=== PATIENT | female | born 1985 | race Caucasian/White ===

== ENCOUNTER 2018-05-25 06:05 | Inpatient (IN) | payer OTHER ==
[~2018-05-25 06:05] MED LIST: CITRIC ACID/SODIUM CITRATE 30 ML UNIT-DOSE CUP PO ONE; ELECTROLYTE-148 SOLN 500 ML IV ONE
[2018-05-25] MEDS ORDERED: ELECTROLYTE-148 SOLN 1,000 ML IV SCH (06:35)
[2018-05-25 06:42] VITALS: BMI 29.9
[2018-05-25] MEDS ORDERED: OXYTOCIN 20 UNITS in 0.9% NS 20 UNIT/1,000 ML INFUS.BAG IV ONE ×2 (07:45→10:46)
[2018-05-25] MEDS ORDERED: PHENYLEPHRINE HCL 10 MG/1 ML SINGLE DOSE VIAL ONE ×2 (07:52→07:54)
[2018-05-25] MEDS ORDERED: SODIUM CHLORIDE 0.9% P/F 10 ML VIAL IJ ONE (07:54)
[2018-05-25] MEDS ORDERED: ceFAZolin SODIUM 1 GM VIAL ONE (07:55)
--- NOTE | 2018-05-25 07:59 | HP ---
Past Medical History - Primary Care Physician PCP:: Flaca Al - Admission Chief Complaint: 33 yrs , 39.3 weeks gestation, previous c/section x3 , requests for repeat c/section & Voluntary sterilization History of Present Illness: PNC at [address] [place] [address] wt gain 20 lbs panel 10/27/17 : O Pos, Rpr nr, Hbsag neg, Rubella pos, Hiv neg, Cf screen neg,, pap nilm , gc/ct neg 02/24/18 1 hr gtt 164, rpr nr, Quantiferon neg 03/07/18 3 hr Gtt 70/166/180/126 05/03/18 36 weeks cultures , gc/ct neg, GBS neg , Hiv neg, h/h 12.7/37.1plt 208 serial sograms done for growth by MFM NT screen neg, AFP neg History Source: Patient, Medical Record Limitations to Obtaining History: No Limitations - Past Medical History MEDICAL ASSOCIATE: No: Migraine, Seizure Cardiovascular: No: HTN, Murmur Pulmonary: No: Asthma Gastrointestinal: Yes: Constipation Hepatobiliary: No: Hepatitis B Renal/: No: UTI ...: 4 ...Para: 3 ...Term: 3 ...: 0 ...Spon : 0 ...Induced : 0 ...Multiple Gestation: 0 ...LMP: 08/22/17 ... Weeks Gestation by Dates: 39.3 ...EDC by Dates: 05/29/18 ...EDC by Sono: 05/30/18 (11/15/17 14 weeks bysono) Additional OB History: G1 11/10/2003 40 weeks primary c/section due to Breech Female at [facility]. G2 10/13/2007 40 weeks repeat c/sect female [facility]. G3 09/10/2010 40 weeks repeat c/sec male [facility] Infectious Disease: No: AIDS, HIV, STD's, Tuberculosis Psych: No: Addictions, Anxiety, Bipolar, Depression, Panic, Psychosis, Schizophrenia, Other Endocrine: No: Diabetes Mellitus, Hypothyroidism - Past Surgical History Past Surgical History: Yes: (10/2003, 09/2007, 08/2010) Hx Myomectomy: No Hx Transabdominal Cerclage: No - Smoking History Smoking history: Never smoked Have you smoked in the past 12 months: No - Alcohol/Substance Use Hx Alcohol Use: No History of Substance Use: reports: None Home Medications - Allergies Allergies/Adverse Reactions: Allergies Allergy/AdvReac Type Severity Reaction Status Date / Time No Known Allergies Allergy Verified 05/25/18 06:31 - Home Medications Home Medications: Ambulatory Orders Vitamins (Sjr) - 1 tab PO DAILY 05/25/18 Physical Exam - Maternity Vital Signs: Vital Signs Temperature 97.9 F 05/25/18 06:32 Pulse Rate 83 05/25/18 06:32 Respiratory Rate 18 05/25/18 06:32 Blood Pressure 135/92 05/25/18 06:32 O2 Sat by Pulse Oximetry (%) Selected Entries 05/25/18 06:32 Weight 164 lb Constitutional: Yes: Well Nourished, No Distress, Calm Eyes: Yes: WNL HENT: Yes: WNL, Normocephalic Neck: Yes: WNL Cardiovascular: Yes: WNL, Regular Rate and Rhythm Lungs: Clear to auscultation Breast(s): Yes: WNL. No: Mass - Abdominal Exam/OB Fundal Height: 38 Number of Fetuses: Single Presentation: Vertex Contractions: Yes Regularity: Irregular Intensity: Unaware Monitor Mode: External Heart Rate (range): 150 Heart Rate Location: [facility] [place] Category: I Accelerations: Uniform Decelerations: None - Vaginal Exam/OB Vaginal Bleediing: No Speculum Exam: No Dilatation (cm): close Effacement (%): unefface Amniotic Membrane Status: Intact Presentation: Vertex/Position Station: -4 - Physical Exam Musculoskeletal: Yes: WNL Extremities: Yes: WNL. No: Calf Tenderness Edema: LLE: 1+, RLE: 1+ Integumentary: Yes: Incision (pfannensteil scar) Deep Tendon Reflex Grade: Normal +2 ...Motor Strength: WNL Psychiatric: Yes: WNL, Alert - Labs Lab Results: Laboratory Tests 05/23/18 05/23/18 05/23/18 09:11 09:11 09:11 WBC 7.2 Hgb 14.1 Hct 40.0 Plt Count 214 PT with INR 10.40 INR 0.88 Sodium Potassium Carbon Dioxide BUN Creatinine Random Glucose Calcium Total Bilirubin AST ALT Urine Protein Negative Urine Nitrite Negative Ur Leukocyte Esterase Negative Urine WBC (Auto) 1 Urine RBC (Auto) 15 Ur Epithelial Cells Moderate Urine Bacteria Rare Hyaline Casts 3 RPR Titer 05/23/18 05/23/18 09:11 09:11 WBC Hgb Hct Plt Count PT with INR INR Sodium 139 Potassium 4.2 Carbon Dioxide 22 BUN 9 Creatinine 0.5 L Random Glucose 51 L Calcium 8.9 Total Bilirubin 0.2 AST 23 ALT 16 Urine Protein Urine Nitrite Ur Leukocyte Esterase Urine WBC (Auto) Urine RBC (Auto) Ur Epithelial Cells Urine Bacteria Hyaline Casts RPR Titer Nonreactive Problem List - Problems (1) with 39 completed weeks gestation Code(s): Z3A.39 - 39 WEEKS GESTATION OF (2) Previous section Code(s): Z98.891 - HISTORY OF UTERINE SCAR FROM PREVIOUS SURGERY (3) Multiparity Code(s): Z64.1 - PROBLEMS RELATED TO MULTIPARITY Assessment/Plan 33 yrs , 39.3 weeks previous c/sx3 , gbs neg, requests for repeat c/ section & voluntary sterilization Plan Repeat LFTC/section & BTL
[2018-05-25] MEDS ORDERED: ePHEDrine SULFATE 50 MG/1 ML AMPULE ONE (08:16)
[2018-05-25] MEDS ORDERED: KETOROLAC TROMETHAMINE 30 MG/1 ML VIAL ONE (08:56)
[2018-05-25 09:30] LABS: VENOUS PC02 53.2 mmHg (38-52); VENOUS PH 7.3 (7.32-7.42)
[2018-05-25 09:31] LABS: VENOUS PO2 24.9 mmHg (28-48)
[2018-05-25] MEDS ORDERED: ACETAMINOPHEN 325 MG TABLET (FP) PO PRN (09:46)
[2018-05-25] MEDS ORDERED: IBUPROFEN 600 MG TABLET (FP) PO PRN (09:46)
[2018-05-25] MEDS ORDERED: ONDANSETRON 4 MG/2 ML VIAL IVPUSH PRN (09:46)
[2018-05-25] MEDS ORDERED: SENNOSIDES/DOCUSATE COMBO (SENNA PLUS) TABLET (UD) PO PRN (10:03)
[2018-05-25] MEDS ORDERED: oxyCODONE HCL 5 MG TABLET PO PRN (10:03)
[2018-05-25] MEDS ORDERED: METHYLERGONOVINE MALEATE 0.2 MG/1 ML AMP IM PRN (10:03)
--- NOTE | 2018-05-25 10:14 | OP ---
Operative Note - Note: Operative Date: 05/25/18 Pre-Operative Diagnosis: 39 weeks , previous c/section x3, multiparity, voluntary, sterilization Operation: Repeat LFTC/Section + BTL Findings: TOB 8.27 AM , Baby Boy, 9/9, wt 7'14', ht 19",Vx , LOT position Both tubes normal, ligated, cut by Modified Livia technique Lt side 1.5 cm para tubal cyst excised . Both ovaries normal Dr Betina Sandoval Hadoop Administrator present in the OR Surgeon: Flaca Al Cylinder Press Operator Helper: Rogelio Hernández Anesthesiologist/MOTOR OVERHAULER: Tram Ervin Anesthesia: Spinal Specimens Removed: cord sgment for coed blood gas. cord blood. placenta. left tubal portion. right tubal portion. left paratubal cyst Estimated Blood Loss (mls): 500 Drains, Volume Out (mls): 100 (chris color , reardon output) Fluid Volume Replaced (mls): 1,500 (Iv Ancef 2 gm ivpb given ) Operative Report Dictated: Yes
[2018-05-25] MEDS ORDERED: OXYTOCIN 20 UNITS in 0.9% NS 20 UNIT/1,000 ML INFUS.BAG IV SCH (10:15)
--- NOTE | 2018-05-25 10:27 | PN ---
Delivery - Delivery Section: Repeat (Bilateral Tubal Ligation), Low Flap Transverse Type of Anesthesia: Spinal Episiotomy/Laceration: None EBL (cc): 500 (reardon output 100 ml) Delivery, Single - Stages of Labor Date of Delivery: 05/25/18 Time of Delivery: Date Placenta Delivered: 05/25/18 Time Placenta Delivered: Placenta: Yes: Manual Removal, Uterine Exploration - Condition of Routeman/Grinder Tender Present: Yes Name: Betina Sandoval Weight: 7 lb 14 oz Position: Left, OT Total Hours ROM (Hrs/Mins): 2 MINS - 1 Minute Total Score: 9 5 Minutes Total Score: 9 - Feeding Plan Initial Plan: Elected not to breastfeed exclusively throughout hospitalization Remarks - Remarks Remarks: 33 yrs , 39.3 weeks, gbs neg pnc at [address] [place] [address] clinic Indication : 39 weeks gestation, previous c/sx3, Multiparity, voluntary sterilization Intraop course uneventful 2 gm iv ancef intraop was given
--- NOTE | 2018-05-25 12:04 | OP ---
DATE OF OPERATION: 05/25/2018 PREOPERATIVE DIAGNOSES: A 39-week , previous section x3, multiparity, requests voluntary sterilization. OPERATION DONE: Repeat low-flap transverse section and bilateral tubal ligation. SURGEON: Flaca Al MD BUSINESS UNIT CONTROLLER SURGEON: RORY Jovel ANESTHESIOLOGIST: Tram Ervin MD QUANTITATIVE RESEARCHER: Isaak Sandoval DO ANESTHESIA: Spinal. FINDINGS: This is a 33-year-old, 4, para 3-0-0-3, had previous three C sections done in the past, and now requests for repeat C section and tubal ligation. She is not in labor. PROCEDURE: Patient's abdomen was shaved, prepped. Soria catheter was placed. She was taken to the operating room table. Spinal anesthesia was given. She was placed in supine position. A Pfannenstiel incision was made through previous scar and skin and subcutaneous tissue. The anterior rectus sheath was incised transversely. Bleeding points were clamped and cauterized and then the rectus muscles were from the rectus sheath and the parietal peritoneum was opened vertically. Lower flap of the peritoneum was identified. It was adherent to the lower segment. The bladder was attached to it, so just above that the transverse incision was made in the uterine segment transversely in the lower segment and the amniotic fluid was clear. It was ruptured. Baby was delivered from LOT position at 8:27 a.m., a baby boy. was 9, 9, and the weight was 7 pounds 14 ounces. Cord was clamped and cut and the cord segment was sent for the cord blood gases and the cord blood was collected. Placenta was removed completely with the membranes. Then, the uterus was exteriorized from the peritoneal cavity. The uterine incision was identified. Uterine cavity was cleaned and then uterine incision was closed in 2 layers. First layer was a continuous locking with a Biosyn 0 suture. Continuous locking sutures were taken. Second was continuous intermittent locking with a Biosyn 0 suture and the bladder peritoneum was included and the vertical mattress sutures were taken. Hemostasis was verified. Both ovaries were normal. Both tubes were identified by the fimbriated end and the isthmic ampullary portion. First the left tube, then the right tube was doubly ligated with a plain 2-0 catgut, and the portion of the tube above the ligature was cut and sent for pathology examination and the endosalpinx was cauterized. Hemostasis was checked postprocedure, first on the left tube. Then on the right tube, similar procedure was done. There was a 1.5-cm paratubal cyst near the fimbrial end which was excised from the mesosalpinx and sent for pathology examination. Hemostasis verified. The uterus was placed back into the peritoneal cavity and irrigation was done. Sponge, instrument, and needle count was correct and the closure of the abdomen was done. Parietal peritoneum was closed with a Vicryl 0 suture and the muscles were approximated together with 0 Vicryl interrupted sutures. Hemostasis was noted underneath the rectus sheath flap. Rectus sheath was closed with a Vicryl 0 suture. Continuous sutures were taken and then hemostasis was verified. Irrigation was done in subcutaneous tissue and subcutaneous tissue was approximated with a 2-0 Vicryl suture and then skin was approximated with umm. A pressure dressing was given. Blood clots were removed from the vagina. The estimated blood loss was 500 mL. Intraoperative urine output was 100 mL. She received 2 g of IV Ancef prior to the incision. She was transferred to the recovery room in stable condition. Marc [id number]
[2018-05-25] MEDS: IBUPROFEN 800 MG/8 ML IJ IVPB PRN ×2 (13:15→20:47)
[2018-05-25] MEDS: oxyCODONE HCL 5 MG TABLET PO PRN ×2 (15:27→23:44)
[2018-05-25] MEDS: CEFAZOLIN 1 GM/D5W 1 GM/50 ML BAG IVPB SCH (18:07)
[2018-05-26] MEDS: CEFAZOLIN 1 GM/D5W 1 GM/50 ML BAG IVPB SCH ×2 (02:48→09:35)
[2018-05-26] MEDS: oxyCODONE HCL 5 MG TABLET PO PRN ×4 (05:05→23:36)
[2018-05-26] MEDS: IBUPROFEN 800 MG/8 ML IJ IVPB PRN (05:06)
[2018-05-26] MEDS: SIMETHICONE 80 MG TAB.CHEW (FP) PO PRN ×4 (05:20→23:37)
[2018-05-26 07:39] LABS: BASO % 0.3 % (0-2.0); EOS % 0.9 % (0-4.5); MCH 32.6 pg (25.7-33.7); MCHC 35.2 g/dl (32.0-36.0); MEAN CELL VOLUME 92.4 fl (80-96); MEAN PLT VOLUME 8.5 fl (7.5-11.1); MONO % 4.3 % (3.8-10.2); NEUT % 78.5 % (42.8-82.8); PLATELET COUNT 180 K/MM3 (134-434); RBC 3.67 M/mm3 (3.60-5.2); RDW 14.1 % (11.6-15.6); WHITE BLOOD COUNT 11.3 K/mm3 (4.0-10.0)
--- NOTE | 2018-05-26 08:19 | PN ---
Progress Note (short form) - Note Progress Note: Anesthesia post op Pt seen and examined S:Alert and awake O: Vital Signs Temperature 97.2 F L 05/26/18 05:13 Pulse Rate 78 05/26/18 05:13 Respiratory Rate 20 05/26/18 06:00 Blood Pressure 136/80 05/26/18 05:13 O2 Sat by Pulse Oximetry (%) 100 05/25/18 10:15 CBC, BMP 05/26/18 07:00 A/P: Current Active Problems Multiparity (Acute) with 39 completed weeks gestation (Acute) Previous section (Acute) s/p repeat c section Doing well post op Continue current care Rajesh Romano M.D.
--- NOTE | 2018-05-26 09:10 | PN ---
Post Progress Note Type of Delivery: Repeat C/S Vital Signs: Vital Signs Temperature 97.2 F L 05/26/18 05:13 Pulse Rate 78 05/26/18 05:13 Respiratory Rate 20 05/26/18 06:00 Blood Pressure 136/80 05/26/18 05:13 O2 Sat by Pulse Oximetry (%) 100 05/25/18 10:15 Uterus: Yes: Fundus below umbilicus Incision: Yes: Dressing dry and intact Abdomen/GI: Yes: Abdomen soft Lochia: Yes: Rubra Lochia, amount: Small Extremities: Yes: Calves non-tender Activity: Ambulating - Labs Labs: CBC WBC 11.3 K/mm3 (4.0-10.0) H 05/26/18 07:00 RBC 3.67 M/mm3 (3.60-5.2) 05/26/18 07:00 Hgb 12.0 GM/dL (10.7-15.3) 05/26/18 07:00 Hct 34.0 % (32.4-45.2) 05/26/18 07:00 MCV 92.4 fl (80-96) 05/26/18 07:00 MCH 32.6 pg (25.7-33.7) 05/26/18 07:00 MCHC 35.2 g/dl (32.0-36.0) 05/26/18 07:00 RDW 14.1 % (11.6-15.6) 05/26/18 07:00 Plt Count 180 K/MM3 (134-434) 05/26/18 07:00 MPV 8.5 fl (7.5-11.1) 05/26/18 07:00 Absolute Neuts (auto) 8.9 K/mm3 (1.5-8.0) H 05/26/18 07:00 Neutrophils % 78.5 % (42.8-82.8) D 05/26/18 07:00 Lymphocytes % 16.0 % (8-40) D 05/26/18 07:00 Monocytes % 4.3 % (3.8-10.2) 05/26/18 07:00 Eosinophils % 0.9 % (0-4.5) 05/26/18 07:00 Basophils % 0.3 % (0-2.0) 05/26/18 07:00 Nucleated RBC % 0 % (0-0) 05/26/18 07:00 Assessment/Plan 33yo s/p RLTCS, BTL, POD#1 Rh+/boy Routine PP care OOB, ambulate Labs reviewed Anticipate d/c to home by POD#4 Chacorta Patel MD
[2018-05-26] MEDS: PRENATAL VITAMINS W/ FOLIC ACID TABLET (FP) PO SCH (09:32)
[2018-05-26] MEDS ORDERED: BISACODYL 10 MG SUPP.RECT RC PRN (10:03)
[2018-05-26] MEDS: ENOXAPARIN NA (PORCINE) 40 MG/0.4 ML DISP.SYRIN SQ SCH (10:17)
[2018-05-26] MEDS: ACETAMINOPHEN 325 MG TABLET (FP) PO PRN ×3 (10:25→23:37)
[2018-05-26] MEDS: FERROUS SO4 325 MG TABLET (FP) PO SCH ×2 (20:54→22:23)
--- NOTE | 2018-05-27 07:40 | PN ---
Progress Note (short form) - Note Progress Note: pod 2 , doing well, ambulating,passing gas CBC, BMP 05/26/18 07:00 Last Vital Signs Temp Pulse Resp BP Pulse Ox 98.9 F 98 H 20 129/79 100 05/26/18 21:00 05/26/18 21:00 05/26/18 21:00 05/26/18 21:00 05/25/18 10:15 abdomen soft, no distension, no cva inicision dry, clean no calf tenderness plan ambulate cbc in am pain management
[2018-05-27] MEDS: PRENATAL VITAMINS W/ FOLIC ACID TABLET (FP) PO SCH (09:00)
[2018-05-27] MEDS: FERROUS SO4 325 MG TABLET (FP) PO SCH ×2 (09:00→22:40)
[2018-05-27] MEDS: SIMETHICONE 80 MG TAB.CHEW (FP) PO PRN ×3 (09:01→22:40)
[2018-05-27] MEDS: oxyCODONE HCL 5 MG TABLET PO PRN ×3 (09:01→22:41)
[2018-05-27] MEDS: ENOXAPARIN NA (PORCINE) 40 MG/0.4 ML DISP.SYRIN SQ SCH (09:01)
[2018-05-27] MEDS: ACETAMINOPHEN 325 MG TABLET (FP) PO PRN ×3 (09:02→22:41)
[2018-05-27 21:56] VITALS: PULSE 79
[2018-05-28 07:11] LABS: BASO % 0.5 % (0-2.0); HEMATOCRIT 34.5 % (32.4-45.2); HEMOGLOBIN 11.4 GM/dL (10.7-15.3); LYMPH % 25.1 % (8-40); MCH 31.1 pg (25.7-33.7); MCHC 33.1 g/dl (32.0-36.0); MEAN PLT VOLUME 7.9 fl (7.5-11.1); MONO % 5.2 % (3.8-10.2); NEUT % 66.2 % (42.8-82.8); PLATELET COUNT 207 K/MM3 (134-434); RBC 3.67 M/mm3 (3.60-5.2); RDW 14.2 % (11.6-15.6); WHITE BLOOD COUNT 10.9 K/mm3 (4.0-10.0)
[2018-05-28 08:12] VITALS: BP 138/86; TEMP 97.9
[2018-05-28] MEDS: ENOXAPARIN NA (PORCINE) 40 MG/0.4 ML DISP.SYRIN SQ SCH (09:09)
[2018-05-28] MEDS: PRENATAL VITAMINS W/ FOLIC ACID TABLET (FP) PO SCH (09:09)
[2018-05-28] MEDS: FERROUS SO4 325 MG TABLET (FP) PO SCH (09:09)
[2018-05-28] MEDS: ACETAMINOPHEN 325 MG TABLET (FP) PO PRN (13:27)
[2018-05-28] MEDS: SIMETHICONE 80 MG TAB.CHEW (FP) PO PRN (13:28)
--- NOTE | 2018-05-29 09:55 | DS ---
Physical Exam-TIME STUDY STATISTICIAN Vital Signs: Vital Signs Temperature 97.9 F 05/28/18 07:15 Pulse Rate 79 05/28/18 07:15 Respiratory Rate 18 05/28/18 07:15 Blood Pressure 138/86 05/28/18 07:15 O2 Sat by Pulse Oximetry (%) 100 05/25/18 10:15 Constitutional: Yes: Well Nourished, Other (pain tolerable) Eyes: Yes: WNL HENT: Yes: WNL Neck: Yes: WNL Cardiovascular: Yes: WNL Respiratory: Yes: WNL Gastrointestinal: Yes: WNL, Normal Bowel Sounds, Soft, Other (bm done). No: Distention Renal/: Yes: WNL, Other (voiding without difficulty) ....Post : Yes: Uterus firm, Uterus non-tender, Slight lochia rubra Breast(s): Yes: WNL Extremities: No: Calf Tenderness Edema: LLE: Trace, RLE: Trace Integumentary: Yes: WNL Wound/Incision: Yes: Clean/Dry, Well Approximated, Umm Intact, Open to air. No: Draining, Reddened, Bleeding, Excoriated Neurological: Yes: WNL, Alert, Oriented ...Motor Strength: WNL Psychiatric: Yes: WNL, Alert, Oriented Labs: CBC, BMP 05/28/18 06:00 Delivery - Delivery Section: Repeat (Bilateral Tubal Ligation), Low Flap Transverse Type of Anesthesia: Spinal Episiotomy/Laceration: None EBL (cc): 500 (reardon output 100 ml) Delivery, Single - Stages of Labor Date of Delivery: 05/25/18 Time of Delivery: 08:27 Time Placenta Delivered: 08:28 Placenta: Yes: Manual Removal, Uterine Exploration - Condition of Floor Technician/Barrel Racer Present: Yes Name: Betina Sandoval Weight: 7 lb 14 oz Position: Left, OT Total Hours ROM (Hrs/Mins): 2 MINS - 1 Minute Total Score: 9 5 Minutes Total Score: 9 - Feeding Plan Initial Plan: Elected not to breastfeed exclusively throughout hospitalization Remarks - Remarks Remarks: 33 yrs , 39.3 weeks, gbs neg pnc at [facility] clinic Indication : 39 weeks gestation, previous c/sx3, Multiparity, voluntary sterilization Intraop course uneventful 2 gm iv ancef intraop was given Post op course uneventful pt will rtc on Wednesday for umm removal post op counselling was done pt was discharged by Dr Bell on 05/28/18 Discharge Summary Reason For Visit: SECTION Condition: Stable - Instructions Diet, Activity, Other Instructions: Post Instructions DIET: Continue good diet high in protein, calcium, and iron rich foods. Drink at least eight (8) glasses of water daily in addition to other fluids. ___ Regular diet MEDICATIONS: Continue vitamins and iron as previously directed. Motrin and Tylenol may be taken for minor discomfort. ACTIVITY: Mild to moderate exercise may be started in two (2) weeks. Take frequent rest periods. Resume normal activity after six (6) week check up. WOUND CARE OF OPERATIVE SITE: Continue use of perineal bottle until vaginal discharge stops. Keep area clean. Shower daily. Keep abdominal wound dry. Report any drainage or redness to physician. Tub baths, tampons and douches are not permitted for [address] Breast feeding& or Bottle feeding BREAST CARE: (For those that are not ): If engorgement occurs: Wear tight fitting bra. Take Tylenol or Motrin for pain. Apply cold packs (ice in bags to each breast ) FAMILY PLANNING: There are many control alternatives to pursue and they should be discussed at your first office visit. You may resume sexual activity after your six (6) week check up. (Remember, is not a contraceptive) NEXT PHYSICIAN APPOINTMENT: Be certain to call for a one (1) week appointment, unless otherwise directed. RTC Wednesday for umm removal Call Clinic or got to Emergency Dept if you have any of the following: Heavy vaginal bleeding Painful urination Leg pain Unusual odor noted to vaginal bleeding High fever Red streaking noted on breast Referrals: Flaca Al MD [Staff Physician] - Disposition: HOME - Home Medications Comprehensive Discharge Medication List: Ambulatory Orders Vitamins (Sjr) - 1 tab PO DAILY 05/25/18 Acetaminophen [Tylenol .Regular Strength -] 650 mg PO Q4H PRN #30 tablet Ibuprofen [Motrin -] 600 mg PO Q4H PRN #30 tablet 05/26/18 Vitamins (Sjr) - 1 tab PO DAILY tablet 05/26/18
--- NOTE | 2018-06-01 18:43 | PATH ---
Surgical Pathology Report Patient Name: PRINCESS [facility]MI[facility]. Rec. #: [id number] /Age/Gender: 1985 (Age: 33) / F Account: [id number] Location: [facility] OBS/LENS AND FRAMES PRESCRIPTION CLERK Taken: 05/25/2018 Received: 05/26/2018 Reported: 06/01/2018 Physicians: Flaca Al M.D. Specimen(s) Received A: PLACENTA B: RIGHT FALLOPIAN TUBE C: LEFT FALLOPIAN TUBE D: RIGHT PARATUBAL CYST Clinical History , 39.3 weeks repeat Final Diagnosis A. PLACENTA, SECTION: 533 G THIRD TRIMESTER PLACENTA WITH TRIVASCULAR UMBILICAL CORD AND UNREMARKABLE PLACENTAL MEMBRANES. B. FALLOPIAN TUBE, RIGHT, PARTIAL EXCISION: FULL LUMINAL PORTION OF UNREMARKABLE FALLOPIAN TUBE. C. FALLOPIAN TUBE, LEFT, PARTIAL EXCISION: FULL LUMINAL PORTION OF UNREMARKABLE FALLOPIAN TUBE. D. PARATUBAL CYST, RIGHT, EXCISION: PARATUBAL CYST. Electronically Signed Rachel Woodruff M.D. Gross Description A. The specimen is received fresh labeled placenta and is a 533 gram, 16.5 x 14.5 x 3.5 cm. placenta with attached membranes and umbilical cord. The attached membranes are gutierrez, thick, cloudy and insert marginally. The umbilical cord measures 15 cm. in length and averages 1.1 cm. in diameter. The cord inserts eccentrically, 5.5 cm. to the nearest margin. No true knots or strictures are identified. Cut surface of the umbilical cord reveals 3 vessels. The surface is nolasco-blue with minimal fibrin deposition and appropriate caliber vessels. The maternal surface is red-brown with focal defects. Sectioning reveals red-brown, spongy parenchyma. No lesions are identified. Twisting Press Operator sections are submitted in three cassettes as follows: 1- membrane rolls and umbilical cord; 2-3- full thickness sections of placenta. B. Received in formalin labeled "right fallopian tube," is a 2.0 cm in length portion of fallopian tube. No fimbria are present. The outer surface is gutierrez nolasco and smooth. Sectioning reveals an unremarkable lumen. Twisting Press Operator sections are submitted in one cassette. C. Received in formalin labeled "left fallopian tube," is a 1.7 cm in length portion of fallopian tube. No fimbria are present. The outer surface is gutierrez-mckeon and smooth. Sectioning reveals an unremarkable lumen. Twisting Press Operator sections are submitted in one cassette. D. Received in formalin labeled "paratubal cyst," is a 1.8 x 1.3 x 1.3 cm intact cyst containing clear serous fluid. The outer surface is gutierrez-mckeon and smooth. The inner lining is smooth. The specimen is serially sectioned and entirely submitted in one cassette. 05/31/201805/31/2018
== END 2018-05-28 17:00 | disposition home or self-care (01) | DRG 540 ==
LOC: JLDR 06:05 → J3W 11:08
PROVIDERS: ADMIT Obstetrics & Gynecology; ATTEND Obstetrics & Gynecology
PROC: 10D00Z1 Extraction of Products of Conception, Low, Open Approach (ICD-10-PCS; principal; 2018-05-25)
PROC: 0UL70ZZ Occlusion of Bilateral Fallopian Tubes, Open Approach (ICD-10-PCS; 2018-05-25)
DX: O34.211 Maternal care for low transverse scar from previous cesarean delivery (principal); Z3A.39 39 weeks gestation of pregnancy; Z37.0 Single live birth; Z30.2 Encounter for sterilization
CPT/HCPCS: 36415; 82803; 85025; 88302-TC; 88304-TC; 88307-TC

== ENCOUNTER 2018-06-17 23:30 | Emergency (ER) | payer OTHER ==
[2018-06-17 23:52] VITALS: BP 153/94; PULSE 88; TEMP 97.6; BMI 29.0
--- NOTE | 2018-06-18 00:23 | PDOC ---
History of Present Illness - General Chief Complaint: Respiratory Stated Complaint: NECK PAIN - History of Present Illness Initial Comments: Krista Walls is a 33yo otherwise healthy woman s/p full term, uncomplicated delivery on 05/29/18 who presents with sore throat and left neck pain for 4 days. She reports that she has been having difficulty eating secondary to throat pain, and she has increased neck pain when she turns her head. She denies any headache, cough, nasal/sinus congestion, ear pain, hearing changes, nausea/vomiting, abdominal pain, or sick contacts. She notes a temperature of 100F at home today. Ms Walls has not had any problems with her surgical incision. Though her triage complaint was listed as "respiratory" she denies cough, SOB, h/o asthma, or any other breathing problems. She took 600mg ibuprofen at home around 9pm with some relief of her symptoms. She states that she has not been eating as much as usual due to the sore throat, but she has been drinking a lot of liquids instead. Past History - Past Medical History Allergies/Adverse Reactions: Allergies Allergy/AdvReac Type Severity Reaction Status Date / Time No Known Allergies Allergy Verified 06/18/18 00:20 Home Medications: Ambulatory Orders Ibuprofen [Motrin -] 600 mg PO Q4H PRN #30 tablet 05/26/18 Vitamins (Sjr) - 1 tab PO DAILY tablet 05/26/18 Asthma: No Cancer: No Cardiac Disorders: No COPD: No Diabetes: No HTN: No Seizures: No Thyroid Disease: No - Suicide/Smoking/Psychosocial Hx Smoking History: Never smoked Have you smoked in the past 12 months: No Hx Alcohol Use: No Drug/Substance Use Hx: No Hx Substance Use Treatment: No Review of Systems - Review of Systems Comments:: General: No fevers, no chills, no weight or appetite change, no malaise HEENT: No changes in vision, no changes in hearing, no congestion. +sore throat , +left neck pain CV: No chest pain, no palpitations, no LE edema Pulm: No SOB, no cough, no wheezing GI: No nausea or vomiting, no change in bowel habits, no melena : No frequency, no urgency, no dysuria Musc: No back pain, no joint swelling, no recent injury Skin: No rash, no lesions, no erythema Endo: No excessive thirst, no heat/cold intolerance Heme: No unusual bruising or bleeding, no swollen glands Neuro: No syncope, no numbness/tingling, no focal weakness Vasc: No claudication Psych: No recent change in mood, no SI or HI *Physical Exam - Vital Signs Last Vital Signs Temp Pulse Resp BP Pulse Ox 97.6 F 88 20 153/94 98 06/17/18 23:46 06/17/18 23:46 06/17/18 23:46 06/17/18 23:46 06/17/18 23:46 - Physical Exam Comments: General: Comfortable, no acute distress HEENT: PERRL, EOMI, MMM, voice normal. Left posterior cervical LAD, TTP. No tonsillar or pharyngeal erythema, edema, exudates. Uvula midline. Handling own secretions, no drooling, able to swallow w/o difficulty. No sinus tenderness. Cards: RRR, no murmur appreciated Pulm: Comfortable on room air, clear to auscultation bilaterally Abd: Soft, nontender, nondistended. incision healing well w/o erythema or edema : No CVA tenderness Ext: Atraumatic. No LE edema. ROM intact. Strength 5/5 and equal bilaterally Vasc: Extremities WWP. Skin: Normal color, no rashes or lesions Neuro: A&Ox3, CN grossly intact, normal speech, motor/sensory grossly intact and symmetric Psych: Mood appropriate to situation Moderate Sedation - Procedure Monitoring Vital Signs: Procedure Monitoring Vital Signs Temperature 97.6 F 06/17/18 23:46 Pulse Rate 88 06/17/18 23:46 Respiratory Rate 20 06/17/18 23:46 Blood Pressure 153/94 06/17/18 23:46 O2 Sat by Pulse Oximetry (%) 98 06/17/18 23:46 Medical Decision Making - Medical Decision Making 06/18/18 00:35 Krista Walls is an otherwise healthy 33yo, ~2wks s/p , who presents with sore throat and L posterior/lateral neck pain for 4 days. She denies fevers, chills, congestion, ear pain, chest pain, cough, sinus pressure, hearing changes, or any other associated symptoms. - Physical exam notable for L posterior cervical LAD. - No fever, no cough suggesting flu. No tonsillar erythema or exudates suggesting strep. No neurologic symptoms, YE, neck stiffness. No stridor, voice changes, drooling. - Pain most likely secondary viral pharyngitis w/ reactive cervical lymphadenopathy vs mono. - d/c home with PMD follow up, OTC analgesics Discussed w/ Dr Carrion. Sierra Horvath PGY1 *DC/Admit/Observation/Transfer Diagnosis at time of Disposition: Sore throat, LAD (lymphadenopathy), posterior cervical - Discharge Dispostion Disposition: HOME Condition at time of disposition: Stable Decision to Admit order: No - Referrals Referrals: [facility] [place] [facility] [place] [Provider Group] - Patient Instructions Printed Discharge Instructions: DI for Viral Pharyngitis, DI for Lymphadenopathy Additional Instructions: Discharge Instructions: - You were seen in the emergency department for a sore throat and neck pain. Your symptoms are most likely caused by a virus. - The lump in your neck is caused by an enlarged lymph node. This can happen when you have even a minor infection. Although the lymph node can be painful, a swollen lymph node is not dangerous. - You can take over the counter medications such as acetaminophen (Tylenol) 650- 1000mg or ibuprofen (Advil, Motrin) 600mg every 6-8 hours for pain. - You should follow up with your regular doctor in a week if your symptoms do not improve. If you do not have a regular doctor, you have been referred to the internal medicine resident clinic. - Seek immediate medical treatment if you develop high fevers to 101F, your symptoms worsen, you are unable to eat or drink, if you develop difficulty breathing, if you have any drooling or voice changes, or if you develop headache with any neurological changes including sensitivity to light. Instrucciones de descarga: - Fue atendido en el departamento de emergencias por dolor de garganta y dolor de lobo. Annabel sntomas son probablemente causados ??por un virus. - El ndulo en webster lobo es causado por un ganglio linftico agrandado. [place] puede suceder cuando tienes incluso grace infeccin oscar. Aunque el ganglio linftico puede ser doloroso, un ganglio inflamado no es peligroso. - Puede red medicamentos de venta marilyn olga el paracetamol (Tylenol) 650- 1000mg o ibuprofen (Advil, Motrin) 600mg cada 6-8 horas para el dolor. - Debe hacer un seguimiento con webster mdico habitual en grace semana si annabel sntomas no mejoran. Si no tiene un mdico de cabecera, lo bonds remitido a la clnica de medicina interna. - Busque tratamiento mdico inmediato si desarrolla fiebre dori hasta 101F, annabel sntomas empeoran, no puede comer o beber, si tiene dificultad para respirar, si tiene babeo o cambios en la voz, o si tiene dolor de jose con algn cambio neurolgico, incluidos Sensibilidad a la shruthi. Print Language: [place] - Post Discharge Activity
--- NOTE | 2018-06-18 00:50 | PDOC ---
Attending Attestation - Resident Resident Name: AlexandruSierra - ED Attending Attestation I have performed the following: I have examined & evaluated the patient, The case was reviewed & discussed with the resident, I agree w/resident's findings & plan, Exceptions are as noted - Physicial Exam PE: 06/18/18 00:59 pt awake, alert, well appering, af awake alert well-appearing; afebrile nc, atr no photophobia oropharynx-nl, w/o exudate; uvula-midline, non-edematous, no voice, no dysphonia, tiera own secretions, no sinus ttp left posterior lymphadnopathy, ttp neck is supple, no meningismus - Medical Decision Making 06/18/18 01:02 Patient is a well-appearing 33-year-old female who presents with signs and symptoms of acute viral pharyngitis. There is no evidence of [employer] or retropharyngeal abscess. I do not suspect epiglottitis. We'll administer NSAIDs and will discharge with outpatient follow-up. <Brian Carrion - Last Filed: 06/18/18 00:59> - HPI HPI: 06/18/18 01:04 The patient is a 33 year old female, 3 weeks , otherwise healthy, who presents to the emergency department with a sore throat and left neck pain today. Patient states she has throat pain whenever she swallows. Patient has no other associated symptoms. The patient denies chest pain, shortness of breath, headache and dizziness. Denies fever, chills, nausea, vomit, diarrhea and constipation. Denies dysuria, frequency, urgency and hematuria. Allergies: NKA Past surgical history: None reported. Social history: No reported alcohol, drug or cigarette use. <Kathleen Gilbert - Last Filed: 06/18/18 01:04>
== END 2018-06-18 01:36 | disposition home or self-care (01) ==
LOC: JER 23:30
DX: R59.1 Generalized enlarged lymph nodes (principal); J02.9 Acute pharyngitis, unspecified
CPT/HCPCS: 99282-25